=== PATIENT | male | born 1965 | race Caucasian/White ===

== ENCOUNTER 2021-01-12 05:09 | Day surgery (SDC) | payer BC, OTHER ==
[~2021-01-12] VITALS: Ht 188 cm; Wt 99.8 kg
--- NOTE | ~2021-01-12 | OP ---
PATIENT NAME: MARLYS WISDOM MEDICAL RECORD: [id number] :67 LOCATION:[facility] ADMISSION DATE: SURGEON: VELMA HORN MD DATE OF OPERATION: 01/12/2021 PREOPERATIVE DIAGNOSES: 1. Left shoulder pain/impingement. 2. Rotator cuff tear. 3. Long head biceps tendinitis. POSTOPERATIVE DIAGNOSES: 1. Left shoulder pain/impingement. 2. Rotator cuff tear. 3. Long head biceps tendinitis. PROCEDURE PERFORMED: Left shoulder scope with subacromial decompression, limited glenohumeral debridement, mini open rotator cuff repair and open biceps tenodesis. INDICATIONS FOR THE PROCEDURE: Mr. Wisdom is a 55-year-old male who injured his left shoulder a few months ago while swinging at a [place]. He has been having pain and limited mobility in the shoulder. An MRI showed evidence of a rotator cuff tear. He has elected to proceed with surgery for left shoulder scope with rotator cuff repair. Risks, benefits and alternatives of surgery were discussed with the patient and consent was obtained. DESCRIPTION OF PROCEDURE: The patient was met in the holding area where his identity and confirmation of the procedure was performed. Left upper extremity was marked. He was taken to the operating room where he was placed supine on the operating table. Anesthesia was administered. He was then positioned in the right lateral decubitus position. Extremities were positioned and padded appropriately. Left upper extremity was prepped and draped in a sterile fashion. The patient received preoperative antibiotics. Timeout was performed before initiating the case. The left arm was placed in skeletal traction and held with the outrigger device. On initiation of the case, the subacromial space was infiltrated with 20 mL of 0.25% Marcaine with epinephrine. We then made our posterior portal, placed the camera into the joint and made our anterior portal under direct visualization. A diagnostic shoulder arthroscopy was performed. There was some inflammation at the superior labrum with slight lift off. 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 The humeral head was in good condition. There was significant fraying of the long head of the biceps tendon and a near full tear of the anterior rotator cuff. Biceps tendon was released and the stump was debrided with the shaver. We also debrided the undersurface of the rotator cuff. Before and after images were obtained. We then moved to the subacromial space. There was noted to be inflammation in the bursa throughout the space. A lateral portal was made near the footprint of the rotator cuff tear. Cautery and a shaver were used to perform subacromial decompression and the bur was used to smooth the undersurface of the acromion. The cuff footprint was then debrided and a bur was used to smooth the footprint and allow for some bleeding tissue. Before and after images were obtained. We then converted to a mini open procedure for rotator cuff repair and open biceps tenodesis. We began with the rotator cuff repair. An incision was made in line with our lateral portal and dissected down to the deltoid. The deltoid was then split longitudinally. We continued our release proximal to the edge of the acromion. The fibers were then retracted with a Gelpi. The footprint was OPERATIVE REPORT [id number] MARLYS WISDOM debrided as well as the tissue over the lateral edge of the tuberosity. Rotator cuff tendon was tagged with #1 Vicryl suture. We then placed two Linkwood anchors at the medial row, passed the sutures through our rotator cuff with a scorpion suture passer and pulled these down in a Fastbridge technique securing in the lateral row with two ReelX anchors. This was then covered with a [employer] Regeneten patch and attached with her tendon and bone anchors. The arm was then externally rotated and our biceps tendon was identified at the bicipital groove. Tissue from around this area was released. An Iconix suture anchor was then placed in the groove and sewed into the tendon to securely fixate it to the bone at this level. The remainder of the tendon stump was transected and this completed our procedure. The wound was irrigated thoroughly with saline. Images were taken from the rotator cuff repair. Deltoid was closed with Vicryl suture. The subcutaneous tissue was closed with Vicryl and the skin was closed with nylon. A sterile dressing was placed. The patient was placed into an abduction sling, turned back over to anesthesia where he was awakened, extubated, and taken to recovery room in stable condition. POSTOPERATIVE PLAN: The patient is going to return home with his family today. He needs to remain in the sling at all times with instructions for no shoulder range of motion. We will see him back in clinic in 2 weeks. COMPLICATIONS: None. ESTIMATED BLOOD LOSS: 10 mL. ANESTHESIA: General with peripheral nerve block. TRANSINT:[id number] Voice Confirmation ID: [id number] DOCUMENT ID: [id number] VELMA HORN MD CC: [id number] DICTATION DATE: 01/12/21 1101 CLINICAL TEAM LEAD: 01/12/21 1149 [facility] [address] [id number]
[~2021-01-12 05:09] MED LIST: DULCOLAX5 MG PO; FLOMAX0.4 MG PO; HYDROCHLOROTHIA25 MG PO; LIPITOR10 MG PO; LOPID600 MG PO; LOPRESSOR50 MG PO; METOPROLOL TART50 MG; MOBIC7.5 MG PO; NAPROXEN250 MG PO; NIACIN500 MG PO; NORCO 10/325 TA1 TA1 PO; PRILOSEC20 MG PO; SINGULAIR10 MG PO; TESTOSTERON200 MG/ML IM; VIBRAMYCIN 100100 MG PO; VIBRAMYCIN50 MG PO; ZYLOPRIM300 MG PO
[2021-01-12 05:38] LABS: BASOPHILS 0.5 % (0-2); EOSINOPHILS 2.2 % (0-7); HEMATOCRIT 47.9 % (42.0-54.0); HEMOGLOBIN 15.6 g/dL (13.5-17.5); IMMATURE GRANULOCYTES 0.5 % (0-5); LYMPHOCYTE ABS# 1.03 10x3/uL (1.32-3.57); LYMPHOCYTES 25.2 % (15-50); MCH 29.9 pg (26.0-34.0); MCHC 32.6 g/dL (31.0-37.0); MCV 91.9 fL (80.0-100.0); MEAN PLATELET VOLUME 10.4 fL (7.4-10.4); MONOCYTES 16.9 % (2-11); NEUTROPHIL ABS# 2.24 10x3/uL (1.78-5.38); NEUTROPHILS 54.7 % (40-80); RBC 5.21 10x6/uL (4.20-6.10); RDW 14.6 % (11.5-14.5); WBC 4.1 10x3/uL (4.8-10.8)
[2021-01-12 05:55] LABS: ANION GAP 9.5 mmol/L (8-16); CALCIUM 9.7 mg/dL (8.5-10.1); CARBON DIOXIDE 32.2 mmol/L (21.0-32.0); CREATININE - SERUM 1.3 mg/dL (0.6-1.3); PLATELET COUNT 147 10x3/uL (130-400); POTASSIUM - SERUM 3.7 mmol/L (3.5-5.1)
[2021-01-12 06:14] VITALS: BP 120/85; Ht 188 cm; Wt 99.8 kg
--- NOTE | 2021-01-12 11:30 | NUR ---
DISCHARGE INSTRUCTIONS REVIEWED WITH PATIENT AND SPOUSE. COPY PROVIDED AND ORIGINAL RX FOR PERCOCET. BOTH VOICED UNDERSTANDING.
--- NOTE | 2021-01-12 12:34 | NUR ---
DISCHARGED VIA W/C, ACCOMPANIED BY CAROLINE JASSO, TO [facility] WITH SPOUSE DRIVING. ALL BELONGINGS WITH SPOUSE. DRESSING TO PT'S LEFT SHOULDER CDI AND SLING IN PLACE. PT DENIES PAIN.
== END 2021-01-12 12:34 | disposition home or self-care (01) ==
LOC: D.OPS 05:09
PROVIDERS: Anesthesiology; ATTEND Orthopaedic Surgery
DX: M75.42 Impingement syndrome of left shoulder (principal); M75.122 Complete rotator cuff tear or rupture of left shoulder, not specified as traumatic; M75.22 Bicipital tendinitis, left shoulder; M25.512 Pain in left shoulder